=== PATIENT | male | born 1955 | race Caucasian/White ===

== ENCOUNTER 2016-06-02 19:54 | Inpatient (IN) | payer BC ==
[2016-06-02] MEDS ORDERED: ASPIRIN 81 MG CHEWABLE TAB ONE (19:57)
[2016-06-02] MEDS ORDERED: ASPIRIN 81 MG CHEWABLE TAB PO ONE (20:04)
--- NOTE | 2016-06-02 20:04 | EDPHY ---
H & P Time Seen by Provider: 06/02/16 19:54 HPI/ROS: CHIEF COMPLAINT: Cardiac arrest HISTORY OF PRESENT ILLNESS: EMS was toned at 7:21 p.m. for patient to collapsed on the basketball court and bystander CPR was started. On arrival he was in fine ventricular fibrillation and had 2 shocks and converted to sinus rhythm. On the way here he was jerking his head to the left and apparently had unequal pupils. No history of trauma. On arrival the patient says he feels fine and keeps asking me "what happened?" REVIEW OF SYSTEMS: Eye: no change in vision ENT: no sore throat Cardiac: HPI Pulmonary: no cough or SOB Abdomen: no vomiting, diarrhea, abdominal pain Musculoskeletal: no back pain or neck pain Skin: no rash Neuro: no headache Constitutional: no fever : no urinary symptoms A comprehensive 10 point review of systems is otherwise negative aside from elements mentioned in the history of present illness. PAST MEDICAL HISTORY: Negative Social history: No drugs, Namibian is primary language. General Appearance: Alert and conversant, cooperative. Eyes: No scleral icterus. ENT, Mouth: Normal mucous membranes. Respiratory: Normal respiratory effort, breath sounds equal, lungs are clear to auscultation. Cardiovascular: Regular rate and rhythm. Gastrointestinal: Abdomen is soft and non tender. Neurological: Alert and oriented x3. Normally conversant. Face symmetric, normal movement and sensation in all extremities. Pupils 3 mm equal and reactive , extraocular motion intact. Skin: Warm and dry, no rashes. Musculoskeletal: No cervical thoracic or lumbar spine tenderness. Psychiatric: Not agitated. Emergency Department course/MDM: Adams at 2004. Oral aspirin 324. Cervical spine cleared clinically by myself. CT head ordered because of the neurologic findings noted by the pre-hospital EMS providers. However at this time those findings seem to have resolved spontaneously. Adams 2012; reviewed both EKG's requested emergent echo, and call in lab systems analyst team , recommends no medications except ASA. 2044: Patient remains clinically stable, alert and without medical complaints, stable hemodynamics, off to the lab systems analyst. Smoking Status: Never smoked Constitutional: Initial Vital Signs Temperature (C) 36.5 C 06/02/16 19:57 Heart Rate 83 06/02/16 19:57 Respiratory Rate 20 06/02/16 19:57 Blood Pressure 124/86 H 06/02/16 19:57 O2 Sat (%) 96 06/02/16 19:57 O2 Delivery Mode Nasal Cannula O2 (L/minute) 2 Allergies/Adverse Reactions: No Known Allergies Allergy (Unverified 06/02/16 20:01) Home Medications: Medication Instructions Recorded NK [No Known Home Meds] 06/02/16 Medical Decision Making - Diagnostics EKG Interpretation: 12-lead EKG interpreted by me; official reading is in trace master. My interpretation is normal sinus rhythm, no ischemic changes. 2nd EK-lead EKG interpreted by me; official reading is in trace master. My interpretation is sinus rhythm, no ischemic changes , normal intervals. Both electrocardiograms reviewed with Dr. Lamas. Imaging Results: Imaging Impressions Chest X-Ray 06/02/16 19:58 Impression: Clear lungs. No pulmonary edema or evidence of aspiration. Head CT 06/02/16 20:05 Impression: Normal brain. No acute intracranial hemorrhage or evidence of ischemia. Findings discussed with Emergency Department physician, DYLON CASTILLO at 2016 20:32. Head CT discussed with Luh and reviewed personally by myself negative. Chest x-ray personally interpreted is normal. Differential Diagnosis: Differential for cardiac arrest considered including but not limited to ischemic , toxic, primary electrical dysrhythmia, abnormal metabolic. Critical Care Time: Critical care time spent by me, Dr. Castillo, exclusively with the care of this patient was 45 minutes, exclusive of PA or CREMATORY OPERATOR time and exclusive of separate procedures. The organ system at risk was cardiac and I ordered multiple diagnostics, consultation with head charrer, serial exams; to stabilize the patient and prevent worsening of the patient's condition. - Data Points Laboratory Results: Laboratory Results 06/02/16 19:58 06/02/16 19:58 06/02/16 06/02/16 06/02/16 19:58 19:58 19:58 WBC 10.73 10^3/uL H 10^3/uL (3.80-9.50) RBC 5.12 10^6/uL 10^6/uL (4.40-6.38) Hgb 16.6 g/dL g/dL (13.7-17.5) Hct 49.2 % % (40.0-51.0) MCV 96.1 fL fL (81.5-99.8) MCH 32.4 pg pg (27.9-34.1) MCHC 33.7 g/dL g/dL (32.4-36.7) RDW 12.5 % % (11.5-15.2) Plt Count 196 10^3/uL 10^3/uL (150-400) MPV 9.5 fL fL (8.7-11.7) Neut % (Auto) Not Reported Lymph % (Auto) Not Reported [place] % (Auto) Not Reported Eos % (Auto) Not Reported Baso % (Auto) Not Reported Nucleat RBC Rel Count 0.7 % H % (0.0-0.2) Absolute Neuts (auto) Not Reported Absolute Lymphs (auto) Not Reported Absolute Monos (auto) Not Reported Absolute Eos (auto) Not Reported Absolute Basos (auto) Not Reported Absolute Nucleated RBC 0.07 10^3/uL H 10^3/uL (0-0.01) Immature Gran % Not Reported Immature Gran # Not Reported Platelet Estimate Pending PT 13.3 SEC SEC (12.0-15.0) INR 1.02 (0.83-1.16) APTT 25.8 SEC SEC (23.0-38.0) Sodium 137 mEq/L mEq/L (134-144) Potassium 3.0 mEq/L L mEq/L (3.5-5.2) Chloride 101 mEq/L mEq/L (97-110) Carbon Dioxide 20 mEq/l L mEq/l (22-31) Anion Gap 16 mEq/L mEq/L (8-16) BUN 27 mg/dL H mg/dL (7-23) Creatinine 1.2 mg/dL mg/dL (0.7-1.3) Estimated GFR > 60 Glucose 165 mg/dL H mg/dL (70-100) Calcium 8.9 mg/dL mg/dL (8.5-10.4) Troponin I Pending Medications Given: Discontinued Medications Aspirin (Aspirin) 324 mg PO EDNOW ONE Stop: 06/02/16 20:05 Last Admin: 06/02/16 20:05 Dose: 324 mg Departure - Departure Disposition: To OP Cath/Surgery Clinical Impression: Cardiac arrest, Ventricular fibrillation Condition: Serious
--- NOTE | 2016-06-02 20:05 | CPEKG ---
Heart Rate: 83 RR Interval: 723 P-R Interval: 156 QRSD Interval: 98 QT Interval: 404 QTC Interval: 475 P [place]: 70 QRS [place]: 75 T Wave [place]: 33 EKG Severity - NORMAL ECG - EKG Impression: SINUS RHYTHM Electronically Signed By: Rock Kerr 02-Jun-2016 20:05:48
--- NOTE | 2016-06-02 20:09 | CPEKG ---
Heart Rate: 79 RR Interval: 759 P-R Interval: 160 QRSD Interval: 100 QT Interval: 412 QTC Interval: 473 P [place]: 76 QRS [place]: 76 T Wave [place]: 21 EKG Severity - NORMAL ECG - EKG Impression: SINUS RHYTHM Electronically Signed By: Rock Kerr 02-Jun-2016 20:44:05
[2016-06-02 20:13] LABS: ABSOLUTE NRBC COUNT 0.07 10^3/uL (0-0.01); ADD DIFF? YES; ADD MORPH? NO; ADD SCAN? NO; ATYPICAL LYMPHOCYTE FLAG 20 (0-99); FRAGMENT RBC FLAG 0 (0-99); HEMATOCRIT 49.2 % (40.0-51.0); HEMOGLOBIN 16.6 g/dL (13.7-17.5); LEFT SHIFT FLG 20 (0-99); LIPEMIA HEMOLYSIS FLAG 80 (0-99); MEAN CELL HEMOGLOBIN 32.4 pg (27.9-34.1); MEAN CELL HEMOGLOBIN CONCENTR. 33.7 g/dL (32.4-36.7); MEAN CELL VOLUME 96.1 fL (81.5-99.8); MEAN PLATELET VOLUME 9.5 fL (8.7-11.7); NRBC-AUTO% 0.7 % (0.0-0.2); PLATELET CLUMPS FLAG 10 (0-99); PLATELET COUNT 196 10^3/uL (150-400); RED BLOOD CELL COUNT 5.12 10^6/uL (4.40-6.38); RED CELL DISTRIBUTION WIDTH 12.5 % (11.5-15.2)
[2016-06-02 20:35] LABS: ANION GAP 16 mEq/L (8-16); CALCIUM 8.9 mg/dL (8.5-10.4); CARBON DIOXIDE 20 mEq/l (22-31); CHLORIDE 101 mEq/L (97-110); CREATININE 1.2 mg/dL (0.7-1.3); GLOMERULAR FILTRATION RATE > 60; GLUCOSE 165 mg/dL (70-100); SODIUM 137 mEq/L (134-144)
[2016-06-02 20:39] LABS: INR 1.02 (0.83-1.16); PROTIME(PATIENT) 13.3 SEC (12.0-15.0)
[2016-06-02 20:40] LABS: APTT 25.8 SEC (23.0-38.0)
--- NOTE | 2016-06-02 20:41 | CPEKG ---
Heart Rate: 80 RR Interval: 750 P-R Interval: 168 QRSD Interval: 98 QT Interval: 408 QTC Interval: 471 P [place]: 77 QRS [place]: 79 T Wave [place]: 15 EKG Severity - NORMAL ECG - EKG Impression: SINUS RHYTHM Electronically Signed By: Rock Kerr 02-Jun-2016 20:44:00
[2016-06-02] MEDS ORDERED: MIDAZOLAM 2 MG/2 ML VIAL ONE (20:42)
[2016-06-02] MEDS ORDERED: fentaNYL 100 MCG/2 ML INJ ONE (20:42)
[2016-06-02] MEDS ORDERED: LIDOCAINE 1% 30 ML SDV ONE (20:42)
[2016-06-02] MEDS ORDERED: IOPAMIDOL (ISOVUE-370) 150 ML BTL IV ONE ×2 (20:42→21:16)
[2016-06-02 20:47] LABS: TROPONIN I 0.013 ng/mL (0-0.034)
[2016-06-02 20:57] LABS: MACROCYTES 1+; PLATELET ESTIMATE ADEQUATE (ADEQ)
[2016-06-02] MEDS: POTASSIUM Cl (KCl) 100 ML IV SCH ×2 (21:00→22:15)
[2016-06-02] MEDS ORDERED: BIVALIRUDIN 250 MG/5 ML VIAL IV ONE (21:06)
--- NOTE | 2016-06-02 21:07 | ECHO ---
[id number] + + [address] : : [place] [address] : : [phone] + + Adult Echocardiographic Report + -------+ :Name: HENNA AIKEN TStudy Date: 06/02/2016 08:52 PM : : Hospital Admission Number: [id number] Locat ion: ER: :: 1955 Gender: Male : :Age: 60 yrs Race: WH : :Reason For Study: Eval LV Fx : :History: Post V-Fib arrest, shock x 3 : + -------+ MMode/2D Measurements \T\ Calculations IVSd: 0.82 cm LVIDd: 4.8 cm FS: 34.2 % Ao root diam: 3.6 cm LVPWd: 0.98 cm LVIDs: 3.2 cm EDV(Teich): 109.1 ml ACS: 2.3 cm ESV(Teich): 40.3 ml EF(Teich): 63.0 % Normal Measurement Values: + + :LVIDd (3.5-5.7cm) IVSd (0.6-1.1cm) LVPWd (0.6-1.1cm) Aortic Root (2.0-3.7cm)Left Atrium (1.5-4.0cm): :LV Vol(d) (76-115ml) LV Vol(s) (29-48ml) Ejec Fraction (50-65%)PV Sim (0.6- 1.2m/s) TV Sim (0.4-1.0m/s) : :MV E Sim (0.8-1.0m/s)MV A Sim (0.3-1.0m/s)LVOT Sim (0.7-1.2m/s) Asc Ao Sim ( 0.9-1.8m/s) : + + Doppler Measurements \T\ Calculations RAP systole: 5.0 mmHg Left Ventricle The left ventricular ejection fraction is normal. Ejection Fraction = 60- 65%. No regional wall motion abnormalities noted. Mitral Valve The mitral valve is normal in structure and function. There is no mitral valve stenosis. There is no mitral regurgitation noted. Aortic Valve The aortic valve is normal in structure and function. The aortic valve is trileaflet. There is no aortic stenosis. There is no aortic insufficiency. Pulmonic Valve The pulmonic valve is normal in structure and function. There is no pulmonic valvular regurgitation. Great Vessels The aortic root is normal size. Pericardium/Pleural There is no pericardial effusion. Conclusion This is a limited echo post cardiac arrest. The left ventricular ejection fraction is normal. Ejection Fraction = 60-65%. There is subtile mid anteroseptal hypokinesis. There is no pericardial effusion. The mitral valve is normal in structure and function. The aortic valve is normal in structure and function. The aortic valve is trileaflet. The pulmonic valve is normal in structure and function. Final Reading Physician: Derrell Lamas MD electronically signed on 06/02/2016 09:06 PM Ordering Physician: Derrell Lamas Performed By: Phani Mathis, CS
[2016-06-02] MEDS ORDERED: NITROGLYCERIN 1,500 MCG/15 ML VIAL MISC ONE (21:16)
--- NOTE | 2016-06-02 21:35 | PDDXCAT ---
Diagnostic Cath Note - . Date: 06/02/16 Dispatcher Service Chief: Adams Indication: Resuscitated from sudden cardiac - Procedure Access: right groin Procedure: left heart catheterization, coronary angiography, left ventriculogram - Materials Left Heart Cath materials: standard multipack (JL4, JR4, pigtail) - Findings-Left Heart Catheterization LM: Normal LAD: 95% mid lesion LCX: Non dominant, 1 OM. Proximal LCX has 30% lesion RCA: Dominant, normal LVEF: 50 Wall motion: Mild mid to distal anterior hypokinesis Complications: none Estimated blood loss: <50ml Assessment: VF arrest related to critical LAD disease Plan: Dr. Duenas to perform PCI to LAD Patient Problems: Problems Problem Status Onset Cardiac arrest Acute Ventricular fibrillation Acute
[2016-06-02] MEDS ORDERED: ACETAMINOPHEN 650 MG SUPP PR PRN (21:40)
[2016-06-02] MEDS ORDERED: TICAGRELOR 90 MG TAB PO ONE (21:41)
[2016-06-02] MEDS ORDERED: PROTOCOL POTASSIUM 1 DOSE MISC PRN (22:08)
--- NOTE | 2016-06-02 22:30 | GCON ---
[f rep st] CONSULTATION CARDIOLOGY CONSULTATION HISTORY OF PRESENT ILLNESS: I was asked to emergently evaluate this patient in the [facility] ED by Dr. Rock Kerr. The patient was playing basketball and was noted to have sudden collapse and cardiac arrest. Bystander CPR was initiated, paramedics arrived to the scene and the patient was found to be in ventricular fibrillation, 2 shocks were required for defibrillation with prompt return of sinus rhythm. The patient is awake and alert in the emergency department at the time of my interview. He reports some mild parasternal discomfort, this is mostly tenderness at the site of CPR. He reports feeling nauseous and when he was brought to the cardiac labor relations consultant he did vomit a large amount of food and fluids. He does not have any significant past medical history. He denies any drug use. He has not had chest pain with exertion before. PAST MEDICAL HISTORY: Nothing significant. FAMILY HISTORY: Grandfather had coronary artery disease. SOCIAL HISTORY: Drinks alcohol socially. Denies drug use upon repeated questioning. Denies history of smoking. REVIEW OF SYSTEMS: Negative except for what is noted in HPI, a 10-point review of system was obtained. PHYSICAL EXAMINATION: VITAL SIGNS: Blood pressure was 110-120 over 60-80. NECK: No JVD. No carotid bruits. LUNGS: Clear to auscultation. CV: S1, S2. Regular rate and rhythm. I do not appreciate any murmurs, gallops or rubs. ABDOMEN: No tenderness, guarding or rigidity. EXTREMITIES: No clubbing , cyanosis or edema. LABS: Reviewed. Cardiac markers are pending at the time of this dictation. Potassium level was decreased at 3.0. Other labs are within normal limits except for glucose. EKG was reviewed. This shows normal sinus rhythm. Minimal ST elevation, less than 1 mm in lead III, 0.[address]-depression in lead V3. Tracings from the paramedics were reviewed. This clearly shows ventricular fibrillation x2 with return of sinus rhythm after the 2nd shock. 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 He is reporting mild chest discomfort. Urgent, but limited, echocardiogram was done in the emergency department. This showed normal wall motion, left ventricular ejection fraction of 50% to 55%, no significant valvular heart disease, formal echocardiography will be done tomorrow. He is presenting with ventricular fibrillation cardiac arrest brought on by exercise. EKG besides the above-noted findings does not show any QT prolongation, QT shortening, delta wave, or hypertrophy. Given his mild chest discomfort, we need to conclusively rule out ischemia. He will be taken emergently to the cardiac catheterization laboratory tonight. Coronary angiography will be performed. Risks of the procedure including , UT, CVA, vascular access complications, including vascular access complications, infection, etc., were discussed with him. Dr. Duenas is the backup silk spooler and has been called. /[id number]/MODL MTDD
--- NOTE | 2016-06-02 22:36 | CPEKG ---
Heart Rate: 82 RR Interval: 732 P-R Interval: 168 QRSD Interval: 98 QT Interval: 408 QTC Interval: 477 P [place]: 80 QRS [place]: 75 T Wave [place]: 17 EKG Severity - BORDERLINE ECG - EKG Impression: SINUS RHYTHM Electronically Signed By: aDne Rm 03-Jun-2016 06:23:28
--- NOTE | 2016-06-02 23:11 | CPIP ---
[f rep st] INVASIVE CARDIAC PROCEDURE DATE OF PROCEDURE: 06/02/2016 PROCEDURES: 1. Coronary angiography. 2. Stenting of left anterior descending coronary artery with Synergy drug-eluting stent. INDICATION: Ventricular fibrillation arrest. ACCESS AND CORONARY ANGIOGRAPHY: Access and coronary angiography was performed by Dr. Derrell Lamas. Coronary angiography was notable for single-vessel coronary artery disease involving the left anteri or descending coronary artery. I was consulted to perform percutaneous coronary intervention on thi s high-grade lesion. PERCUTANEOUS CORONARY INTERVENTION OF THE LEFT ANTERIOR DESCENDING CORONARY ARTERY: A 6-Gab[place] EBU 4.0 catheter was advanced to the left main coronary artery and images obtained. Angiography confirm ed that the LAD was diffusely diseased. In the proximal 1 segment, there was a long segmental 30% s tenosis present. In the proximal 2 segment, there was a discrete 95% stenosis present. A Luge wire was placed in the distal vessel and position verified by angiography. A 2.5 x 15 Emerge balloon wa s used to pre-dilate the proximal 2 lesion. Followup angiography demonstrated significant residual stenosis and OZZY 3 flow. A 3.0 x 38 Synergy drug-eluting stent was placed across the proximal 1 an d proximal 2 lesion into the mid vessel and deployed. Followup angiography demonstrated incomplete stent expansion and OZZY-3 flow. A 3.5 x 20 Quantum [place] was used to post dilate the stent. Fo llowup angiography demonstrated OZZY-3 flow. No residual stenosis. COMPLICATIONS: None. CONCLUSIONS: 1. Single-vessel coronary artery disease involving left anterior descending coronary artery. 2. Status post successful percutaneous coronary intervention of the left anterior descending german ry artery using Synergy drug-eluting stents. /[id number]/MODL
[2016-06-03 00:32] LABS: POTASSIUM 3.8 mEq/L (3.5-5.2)
[2016-06-03] MEDS: POTASSIUM Cl (KCl) 100 ML IV SCH ×2 (00:54→02:54)
[2016-06-03 05:42] LABS: ALANINE AMINOTRANSFERASE 255 IU/L (21-72); ALBUMIN 3.9 g/dL (3.5-5.0); ALKALINE PHOSPHATASE 51 IU/L (38-126); ASPARTATE AMINOTRANSFERASE 195 IU/L (17-59); BILIRUBIN,TOTAL 1.2 mg/dL (0.1-1.4); BILIRUBIN-CONJUGATED 0.3 mg/dL (0.0-0.5); BILIRUBIN-UNCONJUGATED 0.9 mg/dL (0.0-1.1); CHOLESTEROL 185 mg/dL (140-220); CHOLESTEROL/HDL RATIO 2.43 RATIO (1.00-4.97); HIGH DENSITY LIPOPROTEIN 76 mg/dL (40-65); LDL/HDL RATIO 1.34 RATIO (1.00-3.64); LOW DENSITY LIPOPROTEIN 102 mg/dL (80-100); NON-HIGH DENSITY LIPOPROTEIN 109 mg/dL (90-129); POTASSIUM 4.3 mEq/L (3.5-5.2); TOTAL PROTEIN 6.3 g/dL (6.3-8.2); TRIGLYCERIDE 36 mg/dL (40-150); VERY LOW DENSITY LIPOPROTEINS 7 mg/dL (8-25)
[2016-06-03] MEDS ORDERED: METOPROLOL TARTRATE 25 MG TAB PO SCH (09:00)
[2016-06-03] MEDS ORDERED: ASPIRIN EC 325 MG TAB PO SCH (09:00)
[2016-06-03] MEDS ORDERED: ATORVASTATIN CALCIUM 40 MG TAB PO SCH ×2 (09:00→12:57)
[2016-06-03] MEDS: TICAGRELOR 90 MG TAB PO SCH ×2 (09:10→19:49)
[2016-06-03] MEDS: ASPIRIN 81 MG CHEWABLE TAB PO SCH (09:11)
[2016-06-03] MEDS: LISINOPRIL 5 MG TAB PO SCH (09:11)
--- NOTE | 2016-06-03 09:14 | CPEKG ---
Heart Rate: 72 RR Interval: 833 P-R Interval: 160 QRSD Interval: 92 QT Interval: 392 QTC Interval: 430 P [place]: 72 QRS [place]: 64 T Wave [place]: -9 EKG Severity - BORDERLINE ECG - EKG Impression: SINUS RHYTHM Electronically Signed By: Dane Rm 03-Jun-2016 14:37:20
--- NOTE | 2016-06-03 09:50 | ECHO ---
[id number] [id number] + + [address] : : [place] [address] : : [phone] + + Adult Echocardiographic Report + --------+ :Name: HENNA AIKEN TStudy Date: 06/03/2016 07:33 AM : : Hospital Admission Number: [id number] Locat ion: 248: :: 1955 Gender: Male Height: 69 in : :Age: 60 yrs Race: WH Weight: 160 l b : :Reason For Study: Eval LV FX : : BSA: 1.9 mete rs2 : :History: Post V-Fib arrest, Stent : + --------+ MMode/2D Measurements \T\ Calculations IVSd: 0.73 cm LVIDd: 5.3 cm FS: 47.2 % Ao root diam: 3.8 cm LVPWd: 0.80 cm LVIDs: 2.8 cm EDV(Teich): 134.9 ml ACS: 2.0 cm ESV(Teich): 29.4 ml EF(Teich): 78.2 % Normal Measurement Values: + + :LVIDd (3.5-5.7cm) IVSd (0.6-1.1cm) LVPWd (0.6-1.1cm) Aortic Root (2.0-3.7cm)Left Atrium (1.5-4.0cm): :LV Vol(d) (76-115ml) LV Vol(s) (29-48ml) Ejec Fraction (50-65%)PV Sim (0.6- 1.2m/s) TV Sim (0.4-1.0m/s) : :MV E Sim (0.8-1.0m/s)MV A Sim (0.3-1.0m/s)LVOT Sim (0.7-1.2m/s) Asc Ao Sim ( 0.9-1.8m/s) : + + Doppler Measurements \T\ Calculations MV E max sim: Ao V2 max: LV V1 max: MR max sim: 69.1 cm/sec 100.4 cm/sec 75.5 cm/sec 278.3 cm/sec MV A max sim: Ao max P.0 mmHgLV V1 max PG: MR max P.9 cm/sec 2.3 mmHg 31.0 mmHg MV E/A: 1.6 PA V2 max: TR max sim: 77.4 cm/sec 244.3 cm/sec PA max P.4 mmHg TR max P.9 mmHg RAP systole: 5.0 mmHg RVSP(TR): 28.9 mmHg Left Ventricle The left ventricle is normal in size. There is normal left ventricular wall thickness. The left ventricular ejection fraction is normal. Ejection Fraction = 78%. No regional wall motion abnormalities noted. Right Ventricle The right ventricle is normal in size and function. Atria The left atrial size is normal. Right atrial size is normal. Mitral Valve The mitral valve is normal in structure and function. There is no evidence of mitral valve prolapse. There is no mitral valve stenosis. There is trace mitral regurgitation. Tricuspid Valve There is trace tricuspid regurgitation. Right ventricular systolic pressure is normal. Aortic Valve The aortic valve is normal in structure and function. The aortic valve is trileaflet. There is no aortic stenosis. There is no aortic insufficiency. Pulmonic Valve The pulmonic valve is normal in structure and function. There is no pulmonic valvular regurgitation. Great Vessels The aortic root is normal size. Pericardium/Pleural There is no pericardial effusion. Conclusion A complete two-dimensional transthoracic echocardiogram was performed (2D, M-mode, Doppler and color flow Doppler). The left ventricular ejection fraction is normal. Ejection Fraction = 78%. The right ventricle is normal in size and function. The mitral valve is normal in structure and function. There is trace mitral regurgitation. There is trace tricuspid regurgitation. Right ventricular systolic pressure is normal. The aortic valve is normal in structure and function. There is no pericardial effusion. Final Reading Physician: Miah Saavedra, Hanna signed on 06/03/2016 09:48 AM Ordering Physician: Derrell Lamas Performed By: Phani Mathis, RDCS
[2016-06-03 10:14] LABS: HEMOGLOBIN A1C 5.4 % (4.0-6.0)
--- NOTE | 2016-06-03 12:54 | SOAPPROG ---
SOAP Progress Note Assessment/Plan: Assessment: 1. VFib arrest. 2. coronary artery disease status post LAD PCI. 3. short-term memory loss associated with cognitive dysfunction post arrest. Impression: Day 1. Patient is doing well from a hemodynamic status without further dysrhythmia. He is free of chest pain. He has no shortness of breath. Short-term memory loss noted. Recommendations: Begin OT PT. Transfer to telemetry. Up titrate beta-liza. Close clinical follow-up with aggressive secondary prevention. 06/03/16 12:51 Subjective: 60-year-old male admitted last night status post VFib arrest with LAD PCI. Doing well. Overnight he has had no significant complaints. He does have back pain which is chronic. He is having short-term memory loss per the patient's caregivers. Cardiac review of systems is negative for chest pain, shortness of breath, PND , orthopnea, palpitations, syncope, near syncope, edema. Objective: Laboratory Tests 06/02/16 06/03/16 19:58 05:17 AST 195 H ALT 255 H Troponin I 0.013 LDL Cholesterol, Calc 102 H Vital Signs Temp Pulse Resp BP Pulse Ox 36.7 C 73 18 122/69 H 98 06/03/16 08:00 06/03/16 09:12 06/03/16 08:00 06/03/16 09:11 06/03/16 08:00 Laboratory Results 06/03/16 05:17 06/02/16 06/03/16 06/04/16 05:59 05:59 05:59 Intake Total 1291 Output Total 1425 300 Balance -134 -300 PT 13.3 SEC (12.0-15.0) 06/02/16 19:58 INR 1.02 (0.83-1.16) 06/02/16 19:58 Medications Generic Name Dose Route Start Last Admin Trade Name Freq PRN Reason Stop Dose Admin Aspirin 81 mg 06/03/16 09:00 06/03/16 09:11 Aspirin PO 11/30/16 08:59 81 mg DAILY [facility] Atorvastatin Calcium 40 mg 06/03/16 09:00 06/03/16 09:11 Lipitor PO 11/30/16 08:59 40 mg DAILY [facility]IN Lisinopril 2.5 mg 06/03/16 09:00 06/03/16 09:11 Zestril PO 11/30/16 08:59 2.5 mg DAILY [facility] Metoprolol Tartrate 12.5 mg 06/03/16 09:00 06/03/16 09:12 Lopressor PO 11/30/16 08:59 12.5 mg BID [facility] Ticagrelor 90 mg 06/03/16 09:00 06/03/16 09:10 Brilinta PO 11/30/16 08:59 90 mg BID [facility] Physical Exam - Physical Exam General Appearance: alert, no apparent distress EENT: normal ENT inspection Neck: non-tender, full range of motion, supple Respiratory: chest non-tender, lungs clear, normal breath sounds Cardiac/Chest: normal peripheral pulses, regular rate, rhythm, No edema, No gallop, No JVD Abdomen: normal bowel sounds, non-tender, soft Skin: normal color, warm/dry ICD10 Worksheet Patient Problems: Problems Problem Status Onset Cardiac arrest Acute Ventricular fibrillation Acute Review of Systems - Review of Systems Constitutional: denies: chills, fever EENTM: no symptoms reported Respiratory: no symptoms reported Cardiac: no symptoms reported Gastrointestinal/Abdominal: no symptoms reported Genitourinary: no symptoms Musculoskelatal: no symptoms Skin: no symptoms
[2016-06-03 14:55] LABS: TROPONIN I 0.574 ng/mL (0-0.034)
[2016-06-03 15:04] LABS: CREATINE KINASE-MB FRACTION 4.57 ng/mL (0-3.19)
[2016-06-03 15:21] LABS: CK-MB INTERPRETATION NEGATIVE (NEGATIVE)
[2016-06-03] MEDS: METOPROLOL TARTRATE 25 MG TAB PO SCH (19:49)
[2016-06-04 07:06] VITALS: PULSE 64; RESP 13; TEMP 98.7; O2SAT 96
[2016-06-04] MEDS: METOPROLOL TARTRATE 25 MG TAB PO SCH (08:05)
[2016-06-04] MEDS: ASPIRIN 81 MG CHEWABLE TAB PO SCH (08:09)
[2016-06-04] MEDS: TICAGRELOR 90 MG TAB PO SCH (08:12)
[2016-06-04] MEDS: LISINOPRIL 5 MG TAB PO SCH (08:13)
[2016-06-04 08:16] VITALS: BP 110/78
--- NOTE | 2016-06-04 08:45 | CPEKG ---
Heart Rate: 73 RR Interval: 822 P-R Interval: 156 QRSD Interval: 92 QT Interval: 472 QTC Interval: 521 P [place]: 69 QRS [place]: 64 T Wave [place]: 100 EKG Severity - ABNORMAL ECG - EKG Impression: SINUS RHYTHM EKG Impression: NONSPECIFIC T ABNORMALITIES, ANT-LAT LEADS EKG Impression: PROLONGED QT INTERVAL Electronically Signed By: Dane Rm 04-Jun-2016 12:16:08
[2016-06-04] MEDS ORDERED: LISINOPRIL 5 MG TAB PO SCH (09:00)
--- NOTE | 2016-06-04 13:11 | GDS ---
[f rep st] DISCHARGE SUMMARY DISCHARGE DIAGNOSES: 1. [id number] ventricular fibrillation arrest, status post successful defibrillation in the [facility]. 2. Obstructive LAD disease with 95% LAD stenosis, status post PTCA and stenting. PROCEDURES: 1. 06/02/2016 echocardiogram, which showed an EF of 60% to 65%. Subtle mid anteroseptal hypokinesi s, normal mitral valve structure and function, normal aortic valve structure and function, normal pu lmonic valve structure and function. 2. 06/02/2016 left heart catheterization, which showed normal left main, 95% LAD mid vessel lesion, proximal circumflex 30% lesion, EF 50%, mild to moderate distal anterior hypokinesis. 3. 06/02/2016 percutaneous intervention to the LAD using a 3.0 x 38 mm Synergy drug-eluting stent. 4. 06/02/2016 chest x-ray. 5. 06/02/[address], which showed a normal brain. 6. 06/03/2016 echocardiogram, which showed an EF of 78% with normal RV size and function, normal mi tral valve structure and function, trace MR, and trace MO. BRIEF HISTORY: Please see dictated H and P by Dr. Lamas for complete details. In brief, the patient is a 60-year-old retired male who was playing basketball on the day of his VF arrest. He was noted to have sudden collapse, and bystander CPR was initiated immediately. Paramedics arrived and perfor med defibrillation for ventricular fibrillation. Two shocks were required and this restored sinus r hythm. The patient had a bout of emesis upon arrival to the emergency department. He had minimal S T elevations on his EKG and was taken to the cardiac catheterization laboratory for further evaluati on. He was found to have obstructive disease involving the LAD, which was treated with PTCA and leon nting. On day of discharge, he has noted some mild cognitive deficits that may have preceded his hospital s [facility]. A speech language pathology visit was ordered. PT and OT have cleared him for discharge to [facility]. PHYSICAL EXAM: VITAL SIGNS: On the day of discharge, blood pressure 110/78, heart rate 64, respira tions 13, O2 saturation 96% on room air. GENERAL: He is a pleasant male in no apparent distress. EYES: PERRL. HEART: Regular rate and rhythm. LUNGS: Clear. SKIN: Right groin site without bru it, ecchymosis, or edema. EXTREMITIES: There are 2+ PT and DP pulses bilaterally. LABORATORY DATA: 06/02/2016, CBC with WBC 10.73, hemoglobin 16.6, hematocrit 49.2, platelet count o f 196. BMP with sodium 137, potassium 3 upon arrival but this has been corrected, chloride 101, CO2 20, creatinine 1.2, BUN 27, glucose 165. Hemoglobin A1c 5.4. Elevated AST at 195, ALT to 255, lik roel consistent with hypoperfusion in the setting of cardiac arrest. Total cholesterol 185, triglyce rides 36, LDL cholesterol 102, HDL 76. Results pending: None. DIET: Cardiac diet recommended. ACTIVITY: Groin precautions were reviewed. He is also being referred to cardiac rehab. DISCHARGE INSTRUCTIONS: 1. Groin precautions, as reviewed. 2. Outpatient cognitive rehab has been ordered. 3. Cardiac rehab may be initiated in the next 1-2 weeks after discharge. 4. Medication regimen reviewed and rationale for usage discussed with patient. 5. Follow up CMP and lipid profile in 1 month's time. 6. Follow up in clinic in 1 month's time. DISCHARGE MEDICATIONS: Please see med reconciliation for complete details. He had no home medicine s upon arrival. He is being discharged on Brilinta 90 mg p.o. b.i.d., Metoprolol 25 p.o. b.i.d., Li sinopril 2.5 mg p.o. daily, atorvastatin 80 mg p.o. daily, aspirin 81 mg p.o. daily. Greater than 30 minutes was spent on discharge and coordination of care. /[id number]/MODL
== END 2016-06-04 12:50 | disposition home or self-care (01) | DRG 246 ==
LOC: EDUNIT# → F2N 22:01 → F2W 06-03 16:03
PROVIDERS: ADMIT Internal Medicine Cardiovascular Disease; ATTEND Internal Medicine Cardiovascular Disease
PROC: B2151ZZ Fluoroscopy of Left Heart using Low Osmolar Contrast (ICD-10-PCS; principal; 2016-06-02)
PROC: 4A023N7 Measurement of Cardiac Sampling and Pressure, Left Heart, Percutaneous Approach (ICD-10-PCS; principal; 2016-06-02)
PROC: B2111ZZ Fluoroscopy of Multiple Coronary Arteries using Low Osmolar Contrast (ICD-10-PCS; principal; 2016-06-02)
PROC: 027034Z Dilation of Coronary Artery, One Artery with Drug-eluting Intraluminal Device, Percutaneous Approach (ICD-10-PCS; principal; 2016-06-02)
DX: I25.10 Atherosclerotic heart disease of native coronary artery without angina pectoris (principal); I49.01 Ventricular fibrillation
CPT/HCPCS: 92523-GN; 97161-GP; 97165-GO; C1725; C1760; C1769; C1874; C1887; C9600; J0583; J1644; J2250; J3010; Q9967

== ENCOUNTER → 2016-07-23 | Outpatient (CLI) | payer BC | LOC: FIMAGING 16:56 | PROVIDERS: ATTEND Internal Medicine Cardiovascular Disease | DX: M79.81 Nontraumatic hematoma of soft tissue (principal) ==